=== PATIENT | female | born 1985 | race Caucasian/White ===

== ENCOUNTER 2016-11-17 03:36 | Inpatient (IN) | payer BC ==
[2016-11-17] MEDS ORDERED: oxyCODONE/Acetamin 5/325 MG* TAB PO PRN (04:39)
[2016-11-17] MEDS ORDERED: Acetaminophen TAB* 325 MG PO PRN (04:39)
[2016-11-17] MEDS ORDERED: Witch Hazel PAD* JAR TOPICAL PRN (04:39)
[2016-11-17] MEDS: Ibuprofen TAB* 600 MG PO PRN ×3 (05:31→20:49)
[2016-11-17] MEDS: Dibucaine 1% 28.35 GM TUBE PR PRN (05:37)
[2016-11-17] MEDS: Levothyroxine TAB* 100 MCG TAB PO SCH (07:30)
[2016-11-17] MEDS: Docusate CAP* 100 MG PO SCH ×3 (09:07→20:49)
[2016-11-18 06:40] LABS: Hematocrit 34 % (35-47); Hemoglobin 11.1 g/dl (12.0-16.0); Mean Corpuscular HGB Conc 33 g/dl (31-36); Mean Corpuscular Hemoglobin 28 pg (27-31); Mean Corpuscular Volume 85 fL (80-97); Mean Platelet Volume 9 um3 (7.4-10.4); Red Blood Count 4.05 10^6/ul (4.0-5.4); Red Cell Distribution Width 14 % (10.5-15); White Blood Count 14.5 10^3/ul (3.5-10.8)
[2016-11-18] MEDS: Levothyroxine TAB* 100 MCG TAB PO SCH (07:38)
[2016-11-18] MEDS: Docusate CAP* 100 MG PO SCH ×3 (09:00→19:40)
[2016-11-18] MEDS: Ibuprofen TAB* 600 MG PO PRN (09:00)
[2016-11-18] MEDS ORDERED: Ferrous Gluconate TAB* 324 MG TAB PO SCH (09:00)
[2016-11-19 07:51] VITALS: BP 124/88
[2016-11-19] MEDS: Levothyroxine TAB* 100 MCG TAB PO SCH (08:00)
[2016-11-19] MEDS: Docusate CAP* 100 MG PO SCH (08:04)
[2016-11-19] MEDS: Dibucaine 1% 28.35 GM TUBE PR PRN (09:41)
== END 2016-11-19 10:19 | disposition home or self-care (01) | DRG 560 ==
LOC: MCHOBOUT 03:36 → MCHOB 03:39
PROVIDERS: ADMIT Nurse Practitioner; ATTEND Nurse Practitioner
PROC: 10E0XZZ Delivery of Products of Conception, External Approach (ICD-10-PCS; principal; 2016-11-17)
PROC: 10907ZC Drainage of Amniotic Fluid, Therapeutic from Products of Conception, Via Natural or Artificial Opening (ICD-10-PCS; 2016-11-17)
PROC: 0W8NXZZ Division of Female Perineum, External Approach (ICD-10-PCS; 2016-11-17)
DX: O48.0 Post-term pregnancy (principal); E03.9 Hypothyroidism, unspecified; O99.334 Smoking (tobacco) complicating childbirth; F17.210 Nicotine dependence, cigarettes, uncomplicated; O99.284 Endocrine, nutritional and metabolic diseases complicating childbirth; O77.0 Labor and delivery complicated by meconium in amniotic fluid; O66.0 Obstructed labor due to shoulder dystocia; Z3A.40 40 weeks gestation of pregnancy; Z37.0 Single live birth
CPT/HCPCS: 36415; 85025; A9270-GY